=== PATIENT | female | born 1940 | race African-American/Black ===

== ENCOUNTER 2018-06-22 20:11 | Emergency (ER) | payer MEDICARE, BC ==
[~2018-06-22] VITALS: Ht 165.1 cm; Wt 95.4 kg
[2018-06-22] MEDS ORDERED: SODIUM CHLORIDE 0.9% 500 ML IV ONE (20:45)
[2018-06-22 21:49] LABS: BASOPHILS % 0.4 % (0.0-2.0); EOSINOPHILS % 3.7 % (0.0-5.0); HEMATOCRIT. 37.7 % (36.0-48.0); HEMOGLOBIN. 12.2 g/dL (12.0-16.0); LYMPHOCYTES % 23.2 % (20.0-50.0); MEAN CORPUSCULAR HEMOGLOBIN 28.7 pg (28.0-32.0); MEAN CORPUSCULAR VOLUME 88.7 fL (81.0-99.0); MEAN PLATELET VOLUME 9.5 fl (7.4-10.4); MONOCYTES % 9.8 % (2.0-8.0); NEUTROPHILS % 62.9 % (40.0-76.0); PLATELET 120 x1000/uL (130-400); RED BLOOD CELL COUNT 4.25 mill/uL (4.2-5.4); RED CELL DISTRIBUTION WIDTH 14.7 % (11.6-14.6)
[2018-06-22 21:55] LABS: CHLORIDE 104 mEq/L (98-107)
[2018-06-22 23:05] VITALS: BP 121/69
== END 2018-06-22 23:22 | disposition home or self-care (01) ==
LOC: ER 20:11
DX: R55 Syncope and collapse (principal); F41.9 Anxiety disorder, unspecified; I27.20 Pulmonary hypertension, unspecified
CPT/HCPCS: 36415; 70450; 80053; 83880; 84484; 85025; 93005; 96360; 96361; 99284; J7040